=== PATIENT | male | born 1940 | race Caucasian/White ===

== ENCOUNTER 2017-10-20 12:51 | Inpatient (IN) | END 2017-10-21 16:31 | disposition home health service (06) | DRG 65 ==

== ENCOUNTER 2018-11-22 10:15 | Emergency (ER) | payer MEDICARE, OTHER ==
[~2018-11-22] VITALS: Ht 177.8 cm; Wt 96.1 kg
[~2018-11-22 10:15] MED LIST: AMLO-147 PO; ATOR10TA65 PO; CARV3.1260 PO; FAMO20TA18 PO; MECL-77 PO; MEMA7CAP PO; OLOP2.5D BOTH EYES; OLOP2.5D5 BOTH EYES; OMEP40CA6 PO; SODI104S2 NS; VALS320T2 PO
[2018-11-22 10:41] VITALS: Ht 177.8 cm; Wt 96.1 kg
[2018-11-22] MEDS ORDERED: IPRATROPIUM (NEB) 0.5 MG/2.5 ML AMP NEB STA (13:18)
[2018-11-22] MEDS ORDERED: ALBUTEROL 0.083% (NEB) 2.5 MG/3 ML AMP NEB STA (13:18)
--- NOTE | 2018-11-22 13:39 | ERD ---
ER Documentation Chief Complaint Chief Complaint Complains of SOB x 3 days HPI This is a 78-year-old male that presents to the emergency department complaining of intermittent shortness of breath for the past 3 days and chest pain. The patient indicates there is not a chest pressure but rather complains of pleuritic chest pain. The shortness of breath is present with exertion. He denies any swelling of his lower extremities. He states he is never had any similar symptoms in the past. The patient has a past medical history of hypertension high cholesterol. The patient does not smoke tobacco. He takes aspirin on a daily basis. He said no fevers no shaking no chills. He denies any recent travel or prolonged immobilization. ROS All systems reviewed and are negative except as per history of present illness. Medications Home Meds Reported Medications Ezetimibe* (Zetia*) 10 Mg Tablet, 10 MG PO DAILY, TAB 11/22/18 Omeprazole/Sodium Bicarbonate (OMEPRAZOLE-BICARB 20-1,100 CAP) 1 Each Capsule, 2 CAP PO DAILY, #30 CAP 11/22/18 Amlodipine Besylate* (Amlodipine Besylate*) 10 Mg Tablet, 10 MG PO DAILY, #30 TAB 11/22/18 Gabapentin* (Gabapentin*) 100 Mg Capsule, 100 MG PO BID, #90 CAP 11/22/18 Memantine* (Namenda* XR) 7 Mg Cap.spr.24, 7 MG PO DAILY, #30 TAB 11/22/18 Rosuvastatin Calcium* (Crestor*) 20 Mg Tablet, 20 MG PO QHS, #30 TAB 11/22/18 Losartan Potassium* (Losartan Potassium*) 100 Mg Tablet, 100 MG PO DAILY, TAB 11/22/18 Clonidine Hcl* (Clonidine Hcl*) 0.1 Mg Tab, 0.1 MG PO NEEDED, TAB 11/22/18 Hydralazine Hcl* (Hydralazine Hcl*) 50 Mg Tab, 50 MG PO Q8 PRN for IF SBP>150, #90 TAB 11/22/18 Ergocalciferol (Vitamin D2) (VITAMIN D2) 50,000 Unit Capsule, 35131 UNIT PO Q14 D, CAP 11/22/18 Carvedilol* (Carvedilol*) 12.5 Mg Tablet, 12.5 MG PO BID, #60 TAB 11/22/18 Carvedilol* (Carvedilol*) 3.125 Mg Tablet, 3.125 MG PO NEEDED, #60 TAB 11/22/18 Discontinued Reported Medications Amlodipine Besylate* (Amlodipine Besylate*) 10 Mg Tablet, 10 MG PO DAILY, #30 TAB 10/20/17 Memantine* (Namenda* XR) 7 Mg Cap.spr.24, 7 MG PO DAILY, #30 TAB 10/20/17 Olopatadine* (Pataday*) 0.2% - 2.5 Ml Drops, 1 DROP BOTH EYES DAILY, EA 10/20/17 Famotidine* (Famotidine*) 20 Mg Tablet, 20 MG PO DAILY, #30 TAB 10/20/17 Sodium Chloride ([place]) 104 Ml [place], 1 SPRAY NS BID, SPRAY 10/20/17 Olopatadine HCl ([place]) 2.5 Ml Drops, 1 DROP BOTH EYES DAILY, BOTTLE 10/20/17 Atorvastatin Calcium (Atorvastatin Calcium) 10 Mg Tablet, 10 MG PO QHS, #30 TAB 10/20/17 Meclizine Hcl* (Meclizine Hcl*) 25 Mg Tablet, 25 MG PO Q8H PRN for DIZZINESS, TAB 10/20/17 Carvedilol* (Carvedilol*) 3.125 Mg Tablet, 3.125 MG PO BID, #60 TAB 10/20/17 Omeprazole* (Omeprazole*) 40 Mg Capsule.dr, 40 MG PO DAILY 08/04/13 Discontinued Scripts Valsartan* (Diovan*) 320 Mg Tablet, 320 MG PO DAILY for 30 Days, #30 TAB Prov:ARAVIND GALVAN MD 10/21/17 Allergies Allergies: Coded Allergies: No Known Allergy (Unverified , 11/22/18) PMhx/Soc History of Surgery: Yes (Hernia repair) Anesthesia Reaction: No Hx Neurological Disorder: Yes (TIA,VERTIGO) Hx Respiratory Disorders: No Hx Cardiac Disorders: Yes (HTN) Hx Psychiatric Problems: No Hx Miscellaneous Medical Probl: No Hx Alcohol Use: No Hx Substance Use: No Hx Tobacco Use: No Smoking Status: Never smoker Physical Exam Vitals Vital Signs Date Temp Pulse Resp B/P (MAP) Pulse Ox O2 O2 Flow FiO2 Time Delivery Rate 11/22/18 99.2 69 14 139/80 97 Room Air 15:30 (99) 11/22/18 73 19 96 21 13:49 11/22/18 Nasal 13:14 Cannula 11/22/18 99.2 71 20 146/74 97 10:41 (98) Physical Exam Constitutional:Well-developed. Well-nourished. HEENT:Normocephalic. Atraumatic.Pupils were equal round reactive to light. Moist mucous membranes.No tonsillar exudates. Neck: No nuchal rigidity. No lymphadenopathy. No posterior cervical spine tenderness or step-offs. Respiratory: Not using accessory muscles of respiration.Lungs were clear to auscultation bilaterally. Mild rhonchi. No rales. No wheezing. Cardiovascular: Regular rate regular rhythm.No murmurs. No rubs were appreciated.S1, S2 normal. Distal pulses are palpable 2+ bilaterally. GI: Abdomen was soft. Nontender. Non Distended. No pulsatile abdominal masses or bruits. No rebound. No guarding. Bowel sounds were present and normal. Muscle skeletal: Full range of motion of both the upper and lower extremities bilaterally.Normal muscle tone.No assymetrical calf tenderness or swelling. Skin: No petechia, no purpura. No lesions on the palms or the soles of the feet. No maculopapular rash. NEURO: Patient was alert, awake, orientated x3.No facial droop. Gait observed and normal with no ataxia.Speech had regular rate and rhythm. No focal neurological deficits. Result Diagram: 11/22/18 1339 11/22/18 1339 Results 24 hrs Laboratory Tests Test 11/22/18 13:39 11/22/18 13:49 White Blood Count 8.0 10^3/ul Red Blood Count 3.88 10^6/ul Hemoglobin 12.3 g/dl Hematocrit 36.7 % Mean Corpuscular Volume 94.6 fl Mean Corpuscular Hemoglobin 31.7 pg Mean Corpuscular Hemoglobin Concent 33.5 g/dl Red Cell Distribution Width 12.7 % Platelet Count 175 10^3/UL Mean Platelet Volume 11.3 fl Immature Granulocytes % 0.400 % Neutrophils % 71.9 % Lymphocytes % 17.8 % Monocytes % 7.7 % Eosinophils % 1.9 % Basophils % 0.3 % Nucleated Red Blood Cells % 0.0 /100WBC Immature Granulocytes # 0.030 10^3/ul Neutrophils # 5.7 10^3/ul Lymphocytes # 1.4 10^3/ul Monocytes # 0.6 10^3/ul Eosinophils # 0.2 10^3/ul Basophils # 0.0 10^3/ul Nucleated Red Blood Cells # 0.0 10^3/ul Prothrombin Time 13.4 Sec Prothrombin Time Ratio 1.0 INR International Normalized Ratio 1.01 Activated Partial Thromboplast Time 26.9 Sec Sodium Level 142 mmol/L Potassium Level 4.0 mmol/L Chloride Level 111 mmol/L Carbon Dioxide Level 23 mmol/L Anion Gap 8 Blood Urea Nitrogen 24 mg/dl Creatinine 1.16 mg/dl Est Glomerular Filtrat Rate mL/min mL/min Glucose Level 93 mg/dl Calcium Level 9.7 mg/dl Magnesium Level 2.0 mg/dl Total Bilirubin 0.4 mg/dl Direct Bilirubin 0.00 mg/dl Indirect Bilirubin 0.4 mg/dl Aspartate Amino Transf (AST/SGOT) 20 IU/L Alanine Aminotransferase (ALT/SGPT) 22 IU/L Alkaline Phosphatase 50 IU/L Creatine Kinase 90 IU/L Creatine Kinase Index 1.5 Creatinine Kinase MB (Mass) 1.37 ng/ml Troponin I < 0.012 ng/ml B-Type Natriuretic Peptide 625 PG/ML Total Protein 7.0 g/dl Albumin 3.9 g/dl Globulin 3.10 g/dl Albumin/Globulin Ratio 1.25 Triglycerides Level 125 mg/dl Cholesterol Level 124 mg/dl LDL Cholesterol, Calculated 70 mg/dl HDL Cholesterol 29 mg/dl Cholesterol/HDL Ratio 4.2 RATIO Lipase 165 U/L Urine Color YELLOW Urine Clarity CLEAR Urine pH 5.0 Urine Specific [place] 1.016 Urine Ketones NEGATIVE mg/dL Urine Nitrite NEGATIVE mg/dL Urine Bilirubin NEGATIVE mg/dL Urine Urobilinogen NEGATIVE mg/dL Urine Leukocyte Esterase TRACE Carlene/ul Urine Microscopic RBC 6 /HPF Urine Microscopic WBC 11 /HPF Urine Hemoglobin NEGATIVE mg/dL Urine Glucose NEGATIVE mg/dL Urine Total Protein NEGATIVE mg/dl Current Medications Medications Dose Sig/Jeff Start Time Status Last (Trade) Ordered Route PRN Stop Time Admin Dose Reason Admin Albuterol 5 mg ONCE STAT 11/22/18 DC 11/22/18 (Proventil NEB 13:18 11/22/18 13:47 0.083% (Neb)) 13:25 Ipratropium 0.5 mg ONCE STAT 11/22/18 DC 11/22/18 Schu[place] NEB 13:18 5/2/19 13:47 (Atrovent 13:25 0.02% (Neb)) Procedures/MDM The patient presented to the emergency department with shortness of breath. My differential diagnosis included but was not limited to upper airway obstruction, CHF, pulmonary embolism, cardiac ischemia, pneumonia, pneumothorax, anemia, drug overdose, pulmonary edema, COPD or asthma. The patient had chest radiograph which showed no cardiomegaly no infiltrates no pneumothorax that was reviewed by myself. I obtained a 12-lead EKG tracing as the patient was complaining of intermittent pleuritic chest pain but did have reproducible chest wall tenderness. 12 Lead EKG tracing ordered and reviewed by myself showed: Normal sinus rhythm of 63 bpm and no arrhythmia. LA interval prolonged at 218 ms with a first-degree AV block QRS duration normal. No ST segment elevation No ST segment depression. No changes consistent with acute ischemia. The patient no severe electrolyte abnormalities. The patient did have an elevat ed BNP of 695. I indicated to the patient and his son that this could be a result of mild congestive heart failure. The patient a nebulizer treatment with significant improvement of his dyspnea. The patient had no risk factors for pulmonary embolism. 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 The patient was discharged home in fair condition. They were instructed to return to the emergency department at any time if there was any worsening of their condition. The patient stated they would follow up with their PCP in the next 24-48 hours to initiate a suitable medication regimen under the care of their PCP as well as to allow their PCP to monitor any drug reactions. The patient was discharged home with prescriptions after they gave informed consent to the new medication. They were also fully informed by myself on the adverse effects and adverse drug interactions in order to provide adequate safeguards to prevent possible adverse reactions to medications. Departure Diagnosis: Primary Impression: Shortness of breath Condition: YULISA Burns MD November 22, 2018 13:39
[2018-11-22] MEDS ORDERED: CARV3.1260 PO (14:02)
[2018-11-22] MEDS ORDERED: CARV12.579 PO (14:02)
[2018-11-22] MEDS ORDERED: HYDR-3672 PO (14:03)
[2018-11-22] MEDS ORDERED: ERGO500013 PO (14:03)
[2018-11-22] MEDS ORDERED: CLON-379 PO (14:04)
[2018-11-22] MEDS ORDERED: LOSA100T15 PO (14:04)
[2018-11-22] MEDS ORDERED: CRES20 PO (14:05)
[2018-11-22] MEDS ORDERED: AMLO-147 PO (14:06)
[2018-11-22] MEDS ORDERED: GABA100C14 PO (14:06)
[2018-11-22] MEDS ORDERED: MEMA7CAP PO (14:06)
[2018-11-22] MEDS ORDERED: OMEP1CAP25 PO (14:07)
[2018-11-22] MEDS ORDERED: EZET10TA31 PO (14:07)
[2018-11-22 16:28] VITALS: BP 145/69; PULSE 66; RESP 18
== END 2018-11-22 16:30 | disposition home or self-care (01) ==
LOC: E/R 10:15
DX: R06.02 Shortness of breath (principal); I10 Essential (primary) hypertension; Z86.73 Personal history of transient ischemic attack (TIA), and cerebral infarction without residual deficits; Z79.82 Long term (current) use of aspirin
CPT/HCPCS: 36415; 71045; 80053; 80061; 81001; 82550; 82553; 83690; 83735; 83880; 84484; 85025; 85610; 85730; 93005; 94664